=== PATIENT | male | born 1965 | race Caucasian/White ===

== ENCOUNTER 2025-01-04 21:55 | Emergency (ER) | payer MEDICARE ==
--- NOTE | 2025-01-04 22:05 | ERPHSYRPT ---
- History of Present Illness Time Seen by Provider: 01/04/25 22:05 Source: patient, family, EMS Exam Limitations: no limitations Physician History: This is a morbidly obese 59-year-old white male patient of Dr. Pringle who arrives by hospice fellow service secondary to left lower leg bleeding. Patient is a diabetic, has a history of hypertension, peripheral neuropathy and gastroesophageal reflux disease. He has a history of chronic venous stasis disease with ulcerations. He went to see his infectious disease physician today who took the dressing down to evaluate the ulceration site. By the time the patient was home, the dressings were full of blood and there were blood dripping on the floor. Patient is not on any anticoagulation therapy. Patient has a history of chronic anemia and his hemoglobin levels generally run around 8 per his report. Patient is not dizzy. Patient is not short of breath. Patient is not having chest pain. Timing/Duration: today Severity: moderate Modifying Factors: Improves With: nothing Associated Symptoms: denies symptoms Allergies/Adverse Reactions: No Known Drug Allergies Allergy (Verified 01/04/25 22:00) Home Medications: Cyclobenzaprine HCl 10 mg [Cyclobenzaprine 10 MG] 10 mg PO TID PRN 01/04/25 [History] Doxycycline Hyclate 100 mg [Vibramycin 100 MG] 100 mg PO DAILY 01/04/25 [History] Gabapentin 300 mg PO TID 01/04/25 [History] Glipizide [Glipizide Xl] 5 mg PO DAILY 01/04/25 [History] Hydrocodone/Acetaminophen [Hydrocodone-Acetamin 10-325 mg] 10 mg PO Q4H PRN PRN 01/04/25 [History] Metformin HCl 500 mg [Glucophage 500 MG] 500 mg PO BID 01/04/25 [History] Orphenadrine Citrate 100 mg [Norflex 100 MG Tablet] 100 mg PO BID 01/04/25 [History] Pantoprazole 20 mg [Protonix 20MG Tablet] 20 mg PO DAILY 01/04/25 [History] Spironolactone 25 mg [Aldactone 25 MG] 25 mg PO DAILY 01/04/25 [History] Tamsulosin HCl 0.4 mg PO DAILY 01/04/25 [History] carvediloL [Coreg] 6.25 mg PO BID 01/04/25 [History] Travel Risk - International Travel Have you traveled outside of the country in past 3 weeks: No - Review of Systems Constitutional: No Symptoms Eyes: No Symptoms Ears, Nose, & Throat: No Symptoms Respiratory: No Symptoms Cardiac: No Symptoms Abdominal/Gastrointestinal: No Symptoms Genitourinary Symptoms: No Symptoms Musculoskeletal: No Symptoms Skin: Other (Bleeding from the left ankle medial aspect venous stasis ulcer wound) Neurological: No Symptoms Psychological: No Symptoms Endocrine: No Symptoms Hematologic/Lymphatic: No Symptoms Immunological/Allergic: No Symptoms All Other Systems: Reviewed and Negative - Past Medical History Pertinent Past Medical History: Yes - Nursing Vital Signs Nursing Vital Signs: Initial Vital Signs Pulse Rate 100 H 01/04/25 21:58 Respiratory Rate 10 L 01/04/25 21:58 O2 Sat by Pulse Oximetry 97 01/04/25 21:58 Pain Scale Pain Intensity 0 - Physical Exam General Appearance: no apparent distress, alert, obese Eye Exam: PERRL/EOMI, eyes nml inspection Ears, Nose, Throat Exam: normal ENT inspection, moist mucous membranes Neck Exam: normal inspection, non-tender, supple, full range of motion Respiratory Exam: airway intact, No chest tenderness, No respiratory distress Gastrointestinal/Abdomen Exam: No tenderness Rectal Exam: not done Back Exam: normal inspection, normal range of motion, No CVA tenderness, No vertebral tenderness Extremity Exam: normal inspection, normal range of motion, pelvis stable Neurologic Exam: alert, oriented x 3, cooperative, photo technician II-XII nml as tested, nml cerebellar function, nml station & gait, sensation nml Skin Exam: other (The dressing of the left lower extremity was taken completely down and all the ulceration sites were evaluated. The medial left ankle ulceration shows signs of healing with granulation tissue. However at the base there is a single punctate vessel that has venous bleeding under pressure. ) Lymphatic Exam: No adenopathy SpO2 Interpretation: normal O2 Delivery: Room Air Procedures - Additional Procedures Progress: The left lower extremity, medial ankle chronic venous stasis ulceration shows a punctate single venous bleed under pressure. We used silver nitrate sticks to provide hemostasis. Surgicel pads were placed in this area followed by Vaseline gauze covering all of the chronic venous stasis ulcer sites of the left lower extremity then covered by KerlixNIC pad, a second Kerlix wrap and Vance bandage. There were no complications and patient tolerated procedure well. - Course Nursing assessment & vital signs reviewed: Yes Ordered Tests: Active Orders 24 hr Category Date Time Status CBC W DIFF Stat Lab 01/04/25 23:15 Completed PROTIME WITH INR Stat Lab 01/04/25 23:15 Received Medication Summary Discontinued Medications Generic Name Dose Route Start Last Admin Trade Name Freq PRN Reason Stop Dose Admin Silver Nitrate Confirm 01/04/25 22:41 Silver Nitrate 1 Pkt Each Administered 01/04/25 22:42 Dose 2 pkt TP .STK-MED ONE Silver Nitrate 2 pkt 01/04/25 22:45 01/04/25 22:46 Silver Nitrate 1 Pkt Each TP 01/04/25 22:46 2 pkt STAT ONE Administration Lab/Rad Data: Laboratory Result Diagrams 01/04/25 23:15 Laboratory Results 01/04/25 Range/Units 23:15 WBC 10.4 H (4.23-9.07) x10^3/uL RBC 4.27 L (4.63-6.08) x10^6/uL Hgb 8.6 L (13.7-17.5) g/dL Hct 31.2 L (40.1-51.0) % MCV 73.1 L (79.0-92.2) fL MCH 20.1 L (25.7-32.2) pg MCHC 27.6 L (32.3-36.5) g/dL RDW 20.3 H (11.6-14.4) % Plt Count 347 H (163-337) x10^3/uL MPV 8.4 L (9.4-12.4) fL Gran % 71.0 H (34.0-67.9) % Immature Gran % (Auto) 0.4 (0.001-0.429) % Nucleat RBC Rel Count 0.0 (0.00-0.2) % Eos # (Auto) 0.33 (0.04-0.54) x10^3/uL Immature Gran # (Auto) 0.04 H (0.001-0.031) x10^3u/L Absolute Lymphs (auto) 1.88 (1.32-3.57) x10^3/uL Absolute Monos (auto) 0.71 (0.30-0.82) x10^3/uL Absolute Nucleated RBC 0.00 (0.00-0.012) x10^3u/L Lymphocytes % 18.0 L (21.8-53.1) % Monocytes % 6.8 (5.3-12.2) % Eosinophils % 3.2 (0.8-7.0) % Basophils % 0.6 (0.2-1.2) % Absolute Granulocytes 7.41 H (1.78-5.38) x10^3/uL Basophils # 0.06 (0.01-0.08) x10^3/uL - Progress Progress: improved, re-examined Progress Note: 01/04/25 23:13 My medical decision and the assignment of low to moderate complexity of this patient's medical issue today is based on review of the patient's past medical history, reviewed patient's medication list, reviewed patient drug allergy list, history present illness and physical findings on examination. The workup in this patient includes drawing a CBC and a PTT/INR. These were ordered after providing the patient with hemostasis. This is described under the procedure section. Differential diagnosis includes was not limited to infected chronic venous stasis ulcer disease, chronic venous stasis disease, venous bleeding from wound 01/04/25 23:25 I interpreted the patient's laboratory data results. Based on laboratory data results the hemoglobin is 8.6. He is chronically anemic. He stated that his hemoglobin level is usually around 8. He is hemodynamically stable. There is no acute or emergent medical issue at this time. Counseled pt/family regarding: lab results, diagnosis, need for follow-up Medical Desision Making - Independent Historian Additional History obtained from: Spouse (Via telephone), Java Application Engineer/EMT - Diagnostic Testing Diagnostic test were ordered, analyzed, and reviewed by me: Yes - Risk of complications Low Risk: Low risk of morbidity from additional dx testing or treatment - Departure Departure Disposition: Home Clinical Impression: Chronic anemia, Venous stasis ulcer, Venous bleed Condition: Stable Critical Care Time: No Referrals: CAL PRINGLE MD [Primary Care Provider, EMERGENCY MEDICINE] - Follow up/PCP as directed Additional Instructions: When you are home, elevate the legs above the level of your heart at all times when you are not up and ambulating. Change the dressing as you usually do. Call your prescribing provider and wound care center tomorrow, 01/05/2025, to make arrangements for follow-up appointment for further evaluation and management.
[2025-01-04] MEDS ORDERED: ARZOL Silver Nitrate Applicator TP ONE (22:41)
[2025-01-04] MEDS: ARZOL Silver Nitrate Applicator TP ONE (22:46)
[2025-01-04 23:20] LABS: BASOPHIL % 0.6 % (0.2-1.2); Basophil (Absolute #) 0.06 x10^3/uL (0.01-0.08); Eosinophil (Absolute #) 0.33 x10^3/uL (0.04-0.54); Hematocrit 31.2 % (40.1-51.0); Hemoglobin 8.6 g/dL (13.7-17.5); IMMATURE GRAN # 0.04 x10^3u/L (0.001-0.031); IMMATURE GRAN % 0.4 % (0.001-0.429); Lymphocyte (Absolute #) 1.88 x10^3/uL (1.32-3.57); Mean Corpuscular Hemoglobin 20.1 pg (25.7-32.2); Mean Corpuscular Hgb Concent. 27.6 g/dL (32.3-36.5); Monocyte (Absolute #) 0.71 x10^3/uL (0.30-0.82); NUCLEATED RBC # 0.00 x10^3u/L (0.00-0.012); NUCLEATED RBC % 0.0 % (0.00-0.2); Platelet Count 347 x10^3/uL (163-337); Red Blood Count 4.27 x10^6/uL (4.63-6.08); White Blood Count 10.4 x10^3/uL (4.23-9.07)
[2025-01-04 23:33] LABS: INR 0.98 (0.8-3.0); PROTIME 11.0 SECONDS (9.4-12.5)
[2025-01-04 23:49] VITALS: BP 131/70; PULSE 87; RESP 10; O2SAT 98
[2025-01-05 00:16] LABS: Slide Review 1 YES
== END 2025-01-04 23:49 | disposition home or self-care (01) ==
LOC: ED 21:55
DX: I83.022 Varicose veins of left lower extremity with ulcer of calf (principal); L97.228 Non-pressure chronic ulcer of left calf with other specified severity; I83.892 Varicose veins of left lower extremity with other complications; D53.9 Nutritional anemia, unspecified; E11.42 Type 2 diabetes mellitus with diabetic polyneuropathy; I10 Essential (primary) hypertension; Z79.84 Long term (current) use of oral hypoglycemic drugs; Z79.899 Other long term (current) drug therapy